=== PATIENT | female | born 2000 ===

== ENCOUNTER 2023-09-24 14:46 | Emergency (ER) | payer BC ==
[2023-09-24 16:00] LABS: APPEARANCE,URINE TURBID (CLEAR); BILIRUBIN,URINE SMALL (NEGATIVE); COLOR,URINE YELLOW (YELLOW); GLUCOSE,URINE NEGATIVE (NEGATIVE); KETONES,URINE 40 (NEGATIVE); LEUKOCYTE ESTERASE,URINE SMALL (NEGATIVE); NITRITE,URINE POSITIVE (NEGATIVE); OCCULT BLOOD,URINE SMALL (NEGATIVE); PROTEIN,URINE 30 (NEGATIVE)
[2023-09-24 16:12] LABS: BACTERIA,URINE MANY /HPF (0-FEW/HPF); EPITHELIAL CELLS,URINE MODERATE /HPF (NOT SEEN); MUCUS,URINE MODERATE /LPF (NOT SEEN); RBC,URINE 0-5 /HPF (0-5); WBC,URINE >100 /HPF (0-5/HPF); YEAST,URINE FEW /HPF (NOT SEEN)
== END 2023-09-24 16:27 | disposition home or self-care (01) ==
LOC: DL.ED 14:46
DX: O23.12 Infections of bladder in pregnancy, second trimester (principal); N30.01 Acute cystitis with hematuria; Z3A.17 17 weeks gestation of pregnancy
CPT/HCPCS: 81001; 87086; 87088; 87186; 99284